=== PATIENT | female | born 2005 | race Caucasian/White ===

== ENCOUNTER 2025-06-11 17:21 | Emergency (ER) | payer SELFPAY ==
[~2025-06-11] VITALS: Ht 160 cm; Wt 98.0 kg
[2025-06-11 17:37] VITALS: TEMP 36.7; O2SAT 98
[2025-06-12 00:11] LABS: BASOPHILS % 0.5 % (0.0-2.0); EOSINOPHILS % 2.1 % (0.0-5.0); HEMATOCRIT. 43.9 % (36.0-48.0); HEMOGLOBIN. 14.1 g/dL (12.0-16.0); LYMPHOCYTES % 26.0 % (20.0-50.0); MEAN PLATELET VOLUME 8.9 fl (7.4-10.4); MONOCYTES % 4.5 % (2.0-8.0); NEUTROPHILS % 66.9 % (40.0-76.0); PLATELET 372 x1000/uL (130-400); RED BLOOD CELL COUNT 5.28 mill/uL (4.2-5.4); RED CELL DISTRIBUTION WIDTH 14.6 % (11.6-14.6)
[2025-06-12 00:35] LABS: HCG SCREEN NEGATIVE
[2025-06-12 00:36] LABS: CREATININE 0.7 mg/dL (0.6-1.0)
[2025-06-12 00:37] LABS: UREA NITROGEN BLOOD 6 mg/dL (9-23)
[2025-06-12 00:41] LABS: T4 FREE 1.32 ng/dL (0.89-1.76)
[2025-06-12] MEDS ORDERED: CEPH500C2 MT (02:01)
[2025-06-12 02:35] VITALS: BP 104/75; PULSE 97; RESP 18; O2SAT 99
[2025-06-12] MEDS: CEPHALEXIN 250MG CAPSULE PO ONE (02:40)
== END 2025-06-12 02:45 | disposition home or self-care (01) ==
LOC: ER 17:21
DX: R00.2 Palpitations (principal); F41.9 Anxiety disorder, unspecified; R00.0 Tachycardia, unspecified; R05.9 Cough, unspecified
CPT/HCPCS: 36415; 71045; 80048; 84439; 84443; 84481; 84703; 85025; 93005; 99285